=== PATIENT | male | born 1945 | race Caucasian/White ===

== ENCOUNTER 2018-10-30 16:18 | Inpatient (IN) | payer OTHER, MEDICARE ==
[2018-10-30 17:59] LABS: WHITE BLOOD COUNT 1.3 10^3/ul (4.8-10.8)
[2018-10-30 17:59] LABS: ABNORMAL IP MESSAGE 1; HEMATOCRIT 37.2 % (42.0-52.0); HEMOGLOBIN 11.5 g/dl (14.0-18.0); MEAN CORPUSCULAR HEMOGLOBIN 23.8 pg (29.0-33.0); MEAN CORPUSCULAR HGB CONC 30.9 g/dl (32.0-37.0); MEAN CORPUSCULAR VOLUME 76.9 fl (82.0-101.0); MEAN PLATELET VOLUME 11.3 fl (7.4-10.4); PLATELET COUNT 257 10^3/UL (140-415); POSITIVE DIFF @See below; RED BLOOD COUNT 4.84 10^6/ul (4.70-6.10); RED CELL DISTRIBUTION WIDTH 22.6 % (11.5-14.5)
[2018-10-30 18:01] LABS: ADD MAN DIFF? YES
[2018-10-30 18:02] LABS: PATH REVIEW? YES
[2018-10-30 18:18] LABS: INR 0.93; PROTIME 12.6 Sec (11.9-14.9)
[2018-10-30 18:22] LABS: ANION GAP 25 (5-13); BLOOD UREA NITROGEN 26 mg/dl (7-20); CALCIUM 8.8 mg/dl (8.4-10.2); CARBON DIOXIDE 12 mmol/L (21-31); CHLORIDE 91 mmol/L (97-110); CREATININE 0.84 mg/dl (0.61-1.24); POTASSIUM 5.2 mmol/L (3.5-5.1); SODIUM 128 mmol/L (135-144)
[2018-10-30 18:26] LABS: GLUCOSE 583 mg/dl (70-220)
[2018-10-30 18:34] LABS: B-TYPE NATRIURETIC PEPTIDE 783 PG/ML (0-125); TROPONIN-I < 0.012 ng/ml (0.000-0.120)
[2018-10-30] MEDS: DILTIAZEM 25 MG INJ IV (19:01)
[2018-10-30] MEDS: DILTIAZEM-D5W 125MG/125ML DRIP 125 ML IV (19:24)
[2018-10-30] MEDS ORDERED: D10/0.45% NACL + KCL 40 MEQ 1,000 ML IV (19:30)
[2018-10-30] MEDS ORDERED: NS + KCL 40 MEQ 1,000 ML IV (19:30)
[2018-10-30] MEDS ORDERED: DEXTROSE 50% 50 ML SYRINGE IV (19:30)
[2018-10-30] MEDS ORDERED: DEXTROSE 10 %/0.45 % NACL 1,000 ML IV (19:30)
[2018-10-30] MEDS ORDERED: SOD CHLORIDE 0.9% 1,000 ML IV (19:30)
[2018-10-30 19:49] LABS: ANISOCYTOSIS 1+ (0-0); BAND NEUTROPHILS #M 0.2 10^3/ul (0.0-0.6); BAND NEUTROPHILS % (M) 21 % (0-4); BASOPHILS % (M) 1 % (0-2); EOSINOPHILS % (M) 2 % (0-7); ERYTHROBLAST% (NRBC) (M) 1 % (0-0); GIANT THROMBO% (M) 3 % (0-0); LYMPHOCYTES #M 0.5 10^3/ul (0.8-2.9); LYMPHOCYTES % (M) 43 % (15-51); METAMYELOCYTES %M 2 % (0-0); MICROCYTOSIS 1+ (0-0); MONOCYTES % (M) 5 % (0-11); MYELOCYTES % (M) 6 % (0-0); PLATELET MORPHOLOGY COMMENT @See below; REACTIVE LYMPHOCYTES% (M) 1 % (0-0); SEG NEUT #M 0.2 10^3/ul (1.6-7.5); SEGMENTED NEUTROPHILS (M) % 18 % (39-77); SMUDGE%M 36 % (0-0)
[2018-10-30 19:59] LABS: HEMOGLOBIN A1C 11.8 % (0-5.9)
[2018-10-30] MEDS ORDERED: ONDANSETRON 4 MG INJ IV (20:00)
[2018-10-30] MEDS ORDERED: ACETAMINOPHEN 325 MG TAB PO (20:00)
[2018-10-30] MEDS: SOD CHLORIDE 0.9% 1,000 ML IV (20:24)
[2018-10-30] MEDS ORDERED: IPRATROPIUM (NEB) 0.5 MG/2.5 ML AMP NEB (20:30)
[2018-10-30] MEDS ORDERED: morphine SULFATE/PF (2 MG/2 ML) SYG IV (20:30)
[2018-10-30] MEDS ORDERED: ALBUTEROL 0.083% (NEB) 2.5 MG/3 ML AMP NEB (20:30)
[2018-10-30] MEDS ORDERED: ACETAMINOPHEN 650MG/20.3ML CUP PO (20:30)
[2018-10-30 21:05] LABS: ANION GAP 21 (5-13); BLOOD UREA NITROGEN 24 mg/dl (7-20); CALCIUM 8.6 mg/dl (8.4-10.2); CARBON DIOXIDE 13 mmol/L (21-31); CHLORIDE 92 mmol/L (97-110); CREATININE 0.82 mg/dl (0.61-1.24); MAGNESIUM 2.2 mg/dl (1.7-2.5); PHOSPHORUS 2.6 mg/dl (2.5-4.9); SODIUM 126 mmol/L (135-144)
[2018-10-30 21:09] LABS: GLUCOSE 520 mg/dl (70-220)
[2018-10-30 21:41] LABS: LACTIC ACID 1.7 mmol/L (0.5-2.0)
[2018-10-30 22:16] LABS: MODE NASAL CANNULA; MetHgb Venous 1.1 %; Sample Type Blood venous; Site VENOUS LINE; Venous COHb 0.3 %; Venous Fraction OxyHgb 23.8 %; Venous Oxygen Sat 24.1 mmHG (55.0-75.0); Venous Total Hemglobin 11.3 g/dl
[2018-10-30] MEDS: CEFEPIME 2GM/50 ML (PMX) 50 ML IVPB (22:25)
[2018-10-30 22:31] LABS: ALANINE AMINOTRANSFERASE 19 IU/L (13-69); ALBUMIN 3.3 g/dl (3.3-4.9); ALBUMIN/GLOBULIN RATIO 1.43; ALKALINE PHOSPHATASE 195 IU/L (42-121); ANION GAP 19 (5-13); ASPARTATE AMINO TRANSFERASE 16 IU/L (15-46); BILIRUBIN,INDIRECT 0.2 mg/dl (0-1.1); BILIRUBIN,TOTAL 0.2 mg/dl (0.2-1.3); BLOOD UREA NITROGEN 22 mg/dl (7-20); CALCIUM 8.5 mg/dl (8.4-10.2); CARBON DIOXIDE 13 mmol/L (21-31); CHLORIDE 97 mmol/L (97-110); GLUCOSE 398 mg/dl (70-220); POTASSIUM 5.3 mmol/L (3.5-5.1); SODIUM 129 mmol/L (135-144); TOTAL PROTEIN 5.6 g/dl (6.1-8.1)
[2018-10-30 22:32] LABS: MAGNESIUM 2.1 mg/dl (1.7-2.5)
[2018-10-30 22:32] LABS: PHOSPHORUS 2.7 mg/dl (2.5-4.9)
[2018-10-30] MEDS: LACTATED RINGER'S 700 ML IV (22:34)
[2018-10-30] MEDS: ENOXAPARIN 40 MG/0.4 ML SYG SC (22:50)
[2018-10-30] MEDS: NS + KCL 30 MEQ 1,000 ML IV (22:59)
[2018-10-30] MEDS: VANCOMYCIN 1 GM (PMX) 250 ML IVPB (23:10)
[2018-10-31] MEDS: INSULIN REGULAR, HUMAN 100 UNIT in SOD CHLORIDE 0.9% 100 ML IV (00:10)
[2018-10-31 01:23] LABS: CREATINE KINASE 27 IU/L (23-200)
[2018-10-31 01:37] LABS: CK-MB 0.82 ng/ml (0.0-2.4); TROPONIN-I < 0.012 ng/ml (0.000-0.120)
[2018-10-31 01:55] LABS: MODE ROOM AIR; Sample Type Blood venous; Site OTHER; Venous COHb 0.3 %; Venous Fraction OxyHgb 18.2 %; Venous Oxygen Sat 18.6 mmHG (55.0-75.0); Venous Total Hemglobin 9.7 g/dl
[2018-10-31 02:17] LABS: ADD UMIC YES; UR ASCORBIC ACID NEGATIVE (NEGATIVE); UR BILIRUBIN (Dip) NEGATIVE (NEGATIVE); UR BLOOD (Dip) 1+ mg/dL (NEGATIVE); UR CLARITY CLEAR (CLEAR); UR COLOR STRAW (YELLOW); UR GLUCOSE (Dip) 3+ mg/dL (NEGATIVE); UR KETONES (Dip) 2+ mg/dL (NEGATIVE); UR LEUKOCYTE ESTERASE (Dip) NEGATIVE Leu/ul (NEGATIVE); UR NITRITE (Dip) NEGATIVE (NEGATIVE); UR RBC 4 /HPF (0-5); UR SPECIFIC GRAVITY (Dip) 1.022 (1.003-1.030); UR TOTAL PROTEIN (Dip) NEGATIVE (NEGATIVE); UR UROBILINOGEN (Dip) NEGATIVE (NEGATIVE); UR WBC 2 /HPF (0-5)
[2018-10-31 02:20] LABS: ANION GAP 18 (5-13); BLOOD UREA NITROGEN 19 mg/dl (7-20); CARBON DIOXIDE 12 mmol/L (21-31); CHLORIDE 103 mmol/L (97-110); CREATININE 0.72 mg/dl (0.61-1.24); GLUCOSE 324 mg/dl (70-220); MAGNESIUM 1.9 mg/dl (1.7-2.5); PHOSPHORUS 2.2 mg/dl (2.5-4.9); SODIUM 133 mmol/L (135-144)
[2018-10-31] MEDS ORDERED: NORepinephrine 8MG/250 ML (PMX 250 ML (02:30)
[2018-10-31] MEDS ORDERED: DEXAMETHASONE 4 MG TAB PO (03:00)
[2018-10-31] MEDS: D10/0.45% NACL + KCL 30 MEQ 1,000 ML IV ×2 (03:07→09:04)
[2018-10-31 03:52] LABS: MODE ROOM AIR; MetHgb Venous 1.6 %; Sample Type Blood venous; Site VENOUS LINE; Venous COHb 0 %; Venous Fraction OxyHgb 21.4 %; Venous Oxygen Sat 21.7 mmHG (55.0-75.0)
[2018-10-31 04:06] LABS: ABNORMAL IP MESSAGE 1; HEMOGLOBIN 9.4 g/dl (14.0-18.0); MEAN CORPUSCULAR HEMOGLOBIN 24.4 pg (29.0-33.0); MEAN CORPUSCULAR HGB CONC 32.4 g/dl (32.0-37.0); MEAN CORPUSCULAR VOLUME 75.1 fl (82.0-101.0); PLATELET COUNT 231 10^3/UL (140-415); POSITIVE DIFF @See below; RED BLOOD COUNT 3.86 10^6/ul (4.70-6.10); RED CELL DISTRIBUTION WIDTH 22.3 % (11.5-14.5)
[2018-10-31 04:06] LABS: WHITE BLOOD COUNT 0.8 10^3/ul (4.8-10.8)
[2018-10-31] MEDS: NS + KCL 30 MEQ 1,000 ML IV (04:07)
[2018-10-31 04:10] LABS: ADD MAN DIFF? YES; ANION GAP 14 (5-13); BLOOD UREA NITROGEN 18 mg/dl (7-20); CALCIUM 7.9 mg/dl (8.4-10.2); CARBON DIOXIDE 19 mmol/L (21-31); CHLORIDE 103 mmol/L (97-110); CREATININE 0.72 mg/dl (0.61-1.24); GLUCOSE 177 mg/dl (70-220); IRON 39 ug/dl (35-150); MAGNESIUM 1.8 mg/dl (1.7-2.5); POTASSIUM 4.8 mmol/L (3.5-5.1); SODIUM 136 mmol/L (135-144)
[2018-10-31 04:11] LABS: CREATINE KINASE 25 IU/L (23-200)
[2018-10-31 04:18] LABS: % IRON SATURATION 18 % SAT (22-52)
[2018-10-31 04:22] LABS: CK INDEX 3.1; CK-MB 0.78 ng/ml (0.0-2.4); TROPONIN-I < 0.012 ng/ml (0.000-0.120)
[2018-10-31 04:24] LABS: TOTAL IRON BINDING CAPACITY 215 ug/dl (241-421)
[2018-10-31] MEDS: PANTOPRAZOLE 40 MG INJ IV (05:12)
[2018-10-31 06:04] LABS: ANISOCYTOSIS 2+ (0-0); BAND NEUTROPHILS #M 0.1 10^3/ul (0.0-0.6); BAND NEUTROPHILS % (M) 16 % (0-4); BASOPHILS % (M) 1 % (0-2); EOSINOPHILS % (M) 1 % (0-7); GIANT THROMBO% (M) 30 % (0-0); LYMPHOCYTES #M 0.5 10^3/ul (0.8-2.9); LYMPHOCYTES % (M) 67 % (15-51); MICROCYTOSIS 2+ (0-0); MONOCYTES % (M) 1 % (0-11); MYELOCYTES % (M) 3 % (0-0); PLATELET ESTIMATE NORMAL; POLYCHROMASIA 3+ (0-0); REACTIVE LYMPHOCYTES% (M) 2 % (0-0); SEG NEUT #M 0.1 10^3/ul (1.6-7.5); SEGMENTED NEUTROPHILS (M) % 9 % (39-77); SMUDGE%M 7 % (0-0)
[2018-10-31] MEDS: NORepinephrine 8MG/250 ML (PMX 250 ML IV (06:54)
[2018-10-31 08:17] LABS: MODE ROOM AIR; MetHgb Venous 0.7 %; Sample Type Blood venous; Site VENOUS LINE; Venous COHb 0.7 %; Venous Fraction OxyHgb 56.5 %; Venous Oxygen Sat 57.3 mmHG (55.0-75.0); Venous Total Hemglobin 9.7 g/dl
[2018-10-31] MEDS ORDERED: ENOXAPARIN 60 MG/0.6 ML SYG SC (09:00)
[2018-10-31 09:04] LABS: ANION GAP 8 (5-13); BLOOD UREA NITROGEN 17 mg/dl (7-20); CALCIUM 7.4 mg/dl (8.4-10.2); CARBON DIOXIDE 17 mmol/L (21-31); CHLORIDE 107 mmol/L (97-110); GLUCOSE 174 mg/dl (70-220); MAGNESIUM 1.8 mg/dl (1.7-2.5); POTASSIUM 4.5 mmol/L (3.5-5.1); SODIUM 132 mmol/L (135-144)
[2018-10-31] MEDS ORDERED: GLUCOSE GEL 15 GRAM TUBE PO ×2 (10:00)
[2018-10-31] MEDS ORDERED: GLUCAGON 1 MG INJ IM (10:00)
[2018-10-31] MEDS ORDERED: GLUCOSE GEL 15 GRAM TUBE BUCCAL (10:00)
[2018-10-31] MEDS ORDERED: DEXTROSE 50% 50 ML SYRINGE IV ×2 (10:00)
[2018-10-31] MEDS: INSULIN GLARGINE [LANTus] (100 UNITS/ML) SYG SC (10:48)
[2018-10-31] MEDS: ENOXAPARIN 40 MG/0.4 ML SYG SC (10:49)
[2018-10-31 11:53] LABS: ADD UMIC NO; UR ASCORBIC ACID NEGATIVE (NEGATIVE); UR BACTERIA FEW /HPF (NONE SEEN); UR BILIRUBIN (Dip) NEGATIVE (NEGATIVE); UR BLOOD (Dip) NEGATIVE (NEGATIVE); UR CLARITY SLIGHTLY CLOUDY (CLEAR); UR COLOR YELLOW (YELLOW); UR GLUCOSE (Dip) 3+ mg/dL (NEGATIVE); UR KETONES (Dip) 1+ mg/dL (NEGATIVE); UR LEUKOCYTE ESTERASE (Dip) NEGATIVE Leu/ul (NEGATIVE); UR NITRITE (Dip) NEGATIVE (NEGATIVE); UR RBC 2 /HPF (0-5); UR SPECIFIC GRAVITY (Dip) 1.017 (1.003-1.030); UR TOTAL PROTEIN (Dip) NEGATIVE (NEGATIVE); UR UROBILINOGEN (Dip) NEGATIVE (NEGATIVE); UR WBC 1 /HPF (0-5)
[2018-10-31 12:04] LABS: MODE ROOM AIR; MetHgb Venous 0.2 %; Sample Type Blood venous; Site VENOUS LINE; Venous COHb 0.3 %; Venous Fraction OxyHgb 73.6 %
[2018-10-31] MEDS: INSULIN ASPART [NOVOLOG] 3 ML PEN SC ×5 (12:25→20:53)
[2018-10-31 12:35] LABS: ANION GAP 11 (5-13); BLOOD UREA NITROGEN 13 mg/dl (7-20); CALCIUM 7.7 mg/dl (8.4-10.2); CARBON DIOXIDE 17 mmol/L (21-31); CHLORIDE 105 mmol/L (97-110); CREATININE 0.66 mg/dl (0.61-1.24); GLUCOSE 170 mg/dl (70-220); MAGNESIUM 1.7 mg/dl (1.7-2.5); PHOSPHORUS 0.7 mg/dl (2.5-4.9); POTASSIUM 4.4 mmol/L (3.5-5.1); SODIUM 133 mmol/L (135-144)
[2018-10-31 13:16] LABS: AADO2 Arterial 9.1 mmHg (7.0-24.0); Allen Test ACCEPTAB; Arterial Base Excess -7.7 mmol/L (-3.0-3); Arterial Blood Gas Oxygen Sat 97.9 mmHG (95.0-100.0); Arterial COHb 0.2 % (0.0-3.0); Arterial Fraction of Oxyhgb 97.6 % (93.0-99.0); Arterial HCO3 15.5 mmol/L (22.0-26.0); Arterial MetHb 0.1 % (0.0-1.5); Arterial pCO2 24.7 mmhg (35-45); MODE ROOM AIR; Site Right Radial
[2018-10-31] MEDS ORDERED: NPH, HUMAN INSULIN ISOPHANE 3ML VIAL SC (18:00)
[2018-10-31 20:01] LABS: ANION GAP 7 (5-13); BLOOD UREA NITROGEN 12 mg/dl (7-20); CALCIUM 7.8 mg/dl (8.4-10.2); CARBON DIOXIDE 21 mmol/L (21-31); CHLORIDE 102 mmol/L (97-110); CREATININE 0.65 mg/dl (0.61-1.24); GLUCOSE 237 mg/dl (70-220); MAGNESIUM 1.7 mg/dl (1.7-2.5); PHOSPHORUS 0.6 mg/dl (2.5-4.9); POTASSIUM 4.3 mmol/L (3.5-5.1); SODIUM 130 mmol/L (135-144)
[2018-10-31] MEDS: SOD CHLORIDE 0.9% 500 ML IV ×2 (23:10→23:49)
[2018-10-31] MEDS: METOPROLOL 5 MG INJ IV (23:23)
[2018-11-01] MEDS: ACCUCHECK 2 AM XX (02:08)
[2018-11-01] MEDS: PANTOPRAZOLE (EC) 40 MG TAB PO (05:23)
[2018-11-01 05:29] LABS: ABNORMAL IP MESSAGE 1; HEMATOCRIT 27.5 % (42.0-52.0); HEMOGLOBIN 8.9 g/dl (14.0-18.0); MEAN CORPUSCULAR HEMOGLOBIN 23.9 pg (29.0-33.0); MEAN CORPUSCULAR HGB CONC 32.4 g/dl (32.0-37.0); MEAN CORPUSCULAR VOLUME 73.9 fl (82.0-101.0); MEAN PLATELET VOLUME 11.1 fl (7.4-10.4); PLATELET COUNT 224 10^3/UL (140-415); POSITIVE DIFF @See below; RED BLOOD COUNT 3.72 10^6/ul (4.70-6.10); RED CELL DISTRIBUTION WIDTH 22.3 % (11.5-14.5)
[2018-11-01 05:29] LABS: WHITE BLOOD COUNT 1.1 10^3/ul (4.8-10.8)
[2018-11-01 05:31] LABS: ADD MAN DIFF? YES
[2018-11-01 06:04] LABS: ANION GAP 7 (5-13); BLOOD UREA NITROGEN 9 mg/dl (7-20); CALCIUM 7.8 mg/dl (8.4-10.2); CARBON DIOXIDE 20 mmol/L (21-31); CHLORIDE 107 mmol/L (97-110); CREATININE 0.63 mg/dl (0.61-1.24); GLUCOSE 193 mg/dl (70-220); POTASSIUM 3.9 mmol/L (3.5-5.1); SODIUM 134 mmol/L (135-144)
[2018-11-01] MEDS: metFORMIN 500 MG TAB PO ×2 (07:49→17:50)
[2018-11-01] MEDS: INSULIN GLARGINE [LANTus] (100 UNITS/ML) SYG SC (07:50)
[2018-11-01] MEDS: INSULIN ASPART [NOVOLOG] 3 ML PEN SC ×7 (07:51→21:00)
[2018-11-01 09:10] LABS: ANISOCYTOSIS 1+ (0-0); BAND NEUTROPHILS #M 0.1 10^3/ul (0.0-0.6); BAND NEUTROPHILS % (M) 17 % (0-4); EOSINOPHILS % (M) 6 % (0-7); GIANT THROMBO% (M) 3 % (0-0); HYPOCHROMASIA 1+ (0-0); LYMPHOCYTES #M 0.6 10^3/ul (0.8-2.9); LYMPHOCYTES % (M) 55 % (15-51); METAMYELOCYTES %M 2 % (0-0); MICROCYTOSIS 1+ (0-0); MONOCYTES % (M) 9 % (0-11); MYELOCYTES % (M) 1 % (0-0); PLATELET ESTIMATE NORMAL; POLYCHROMASIA 1+ (0-0); PROMYELOCYTES % (M) 1 % (0-0); REACTIVE LYMPHOCYTES% (M) 3 % (0-0); SEG NEUT #M 0.1 10^3/ul (1.6-7.5); SEGMENTED NEUTROPHILS (M) % 6 % (39-77); SMUDGE%M 17 % (0-0)
[2018-11-01] MEDS: LINAGLIPTIN 5 MG TABLET PO (09:30)
[2018-11-01] MEDS: ENOXAPARIN 40 MG/0.4 ML SYG SC (09:32)
[2018-11-01] MEDS: DIGOXIN 0.125 MG TAB PO (13:16)
[2018-11-01] MEDS: CEFEPIME 2GM/50 ML (PMX) 50 ML IVPB ×2 (14:37→21:21)
[2018-11-01] MEDS: ONDANSETRON 4 MG INJ IV (17:28)
[2018-11-01] MEDS: FILGRASTIM 300 MCG INJ SC (17:36)
[2018-11-01] MEDS: NORepinephrine 8MG/250 ML (PMX 250 ML IV (17:38)
[2018-11-01] MEDS: DEXTROSE 50% 50 ML SYRINGE IV (21:27)
[2018-11-02] MEDS: ACCUCHECK 2 AM XX (02:34)
[2018-11-02 04:42] LABS: ABNORMAL IP MESSAGE 1; HEMATOCRIT 27.8 % (42.0-52.0); MEAN CORPUSCULAR HEMOGLOBIN 24.1 pg (29.0-33.0); MEAN CORPUSCULAR HGB CONC 32.4 g/dl (32.0-37.0); MEAN CORPUSCULAR VOLUME 74.3 fl (82.0-101.0); MEAN PLATELET VOLUME 11.1 fl (7.4-10.4); PLATELET COUNT 223 10^3/UL (140-415); POSITIVE DIFF @See below; RED BLOOD COUNT 3.74 10^6/ul (4.70-6.10)
[2018-11-02 04:42] LABS: WHITE BLOOD COUNT 1.8 10^3/ul (4.8-10.8)
[2018-11-02 04:56] LABS: ADD MAN DIFF? YES
[2018-11-02 05:03] LABS: ANION GAP 9 (5-13)
[2018-11-02 05:05] LABS: ALANINE AMINOTRANSFERASE 17 IU/L (13-69); ALBUMIN 2.4 g/dl (3.3-4.9); ALKALINE PHOSPHATASE 95 IU/L (42-121); ASPARTATE AMINO TRANSFERASE 14 IU/L (15-46); BILIRUBIN,INDIRECT 0.1 mg/dl (0-1.1); BILIRUBIN,TOTAL 0.1 mg/dl (0.2-1.3); BLOOD UREA NITROGEN 8 mg/dl (7-20); CALCIUM 8.5 mg/dl (8.4-10.2); CARBON DIOXIDE 22 mmol/L (21-31); CHLORIDE 103 mmol/L (97-110); CREATININE 0.73 mg/dl (0.61-1.24); GLUCOSE 66 mg/dl (70-220); POTASSIUM 3.5 mmol/L (3.5-5.1); SODIUM 134 mmol/L (135-144); TOTAL PROTEIN 4.4 g/dl (6.1-8.1)
[2018-11-02] MEDS: PANTOPRAZOLE (EC) 40 MG TAB PO (06:27)
[2018-11-02] MEDS: metFORMIN 500 MG TAB PO (07:35)
[2018-11-02] MEDS: INSULIN ASPART [NOVOLOG] 3 ML PEN SC ×5 (07:35→21:00)
[2018-11-02] MEDS: INSULIN GLARGINE [LANTus] (100 UNITS/ML) SYG SC ×2 (08:00→21:00)
[2018-11-02 08:27] LABS: ANISOCYTOSIS 2+ (0-0); ERYTHROBLAST% (NRBC) (M) 1 % (0-0); HYPOCHROMASIA 1+ (0-0); METAMYELOCYTES %M 1 % (0-0); MICROCYTOSIS 2+ (0-0); OVALOCYTES 1+ (0-0); PLATELET ESTIMATE NORMAL; POLYCHROMASIA 2+ (0-0)
[2018-11-02] MEDS: CEFEPIME 2GM/50 ML (PMX) 50 ML IVPB ×2 (08:31→21:43)
[2018-11-02] MEDS: ENOXAPARIN 40 MG/0.4 ML SYG SC (08:34)
[2018-11-02] MEDS: LINAGLIPTIN 5 MG TABLET PO (09:00)
[2018-11-02 10:28] LABS: BAND NEUTROPHILS % (M) 3 % (0-4); BASOPHILS % (M) 1 % (0-2); EOSINOPHILS % (M) 6 % (0-7); GIANT THROMBO% (M) 6 % (0-0); LYMPHOCYTES #M 0.9 10^3/ul (0.8-2.9); LYMPHOCYTES % (M) 55 % (15-51); MONOCYTE #M 0.5 10^3/ul (0.3-0.9); MONOCYTES % (M) 28 % (0-11); REACTIVE LYMPHOCYTES% (M) 5 % (0-0); SEGMENTED NEUTROPHILS (M) % 1 % (39-77); SMUDGE%M 34 % (0-0)
[2018-11-02] MEDS: DIGOXIN 0.125 MG TAB PO (12:34)
[2018-11-02] MEDS: SOD CHLORIDE 0.9% 1,000 ML IV (12:52)
[2018-11-02] MEDS: FILGRASTIM 300 MCG INJ SC (17:04)
[2018-11-03] MEDS: ACCUCHECK 2 AM XX (02:00)
[2018-11-03 05:29] LABS: ADD MAN DIFF? NO
[2018-11-03 05:34] LABS: WHITE BLOOD COUNT 4.2 10^3/ul (4.8-10.8)
[2018-11-03 05:34] LABS: ABNORMAL IP MESSAGE 1; BASOPHILS % 0.5 % (0.0-2.0); EOSINOPHILS # 0.1 10^3/ul (0.0-0.5); EOSINOPHILS % 1.4 % (0.0-7.0); HEMATOCRIT 24.3 % (42.0-52.0); HEMOGLOBIN 7.8 g/dl (14.0-18.0); LYMPHOCYTES % 23.6 % (15.0-51.0); MEAN CORPUSCULAR HEMOGLOBIN 23.9 pg (29.0-33.0); MEAN CORPUSCULAR HGB CONC 32.1 g/dl (32.0-37.0); MEAN CORPUSCULAR VOLUME 74.3 fl (82.0-101.0); MEAN PLATELET VOLUME 10.9 fl (7.4-10.4); MONOCYTE # 1.2 10^3/ul (0.3-0.9); MONOCYTES % 29.9 % (0.0-11.0); NEUTROPHIL # 1.8 10^3/ul (1.6-7.5); NEUTROPHILS % 44.4 % (39.0-77.0); NUCLEATED RED BLOOD CELLS% 0.7 /100WBC (0.0-0.0); PLATELET COUNT 189 10^3/UL (140-415); POSITIVE DIFF @See below; RED BLOOD COUNT 3.27 10^6/ul (4.70-6.10); RED CELL DISTRIBUTION WIDTH 23.5 % (11.5-14.5)
[2018-11-03] MEDS: PANTOPRAZOLE (EC) 40 MG TAB PO (06:37)
[2018-11-03] MEDS: INSULIN ASPART [NOVOLOG] 3 ML PEN SC ×4 (07:35→21:08)
[2018-11-03] MEDS: metFORMIN 500 MG TAB PO (07:56)
[2018-11-03 07:59] LABS: OCCULT BLOOD STOOL NEGATIVE (NEGATIVE)
[2018-11-03] MEDS: CEFEPIME 2GM/50 ML (PMX) 50 ML IVPB ×2 (08:30→21:04)
[2018-11-03] MEDS: ENOXAPARIN 40 MG/0.4 ML SYG SC (08:34)
[2018-11-03 10:27] LABS: ABNORMAL IP MESSAGE 1; HEMATOCRIT 27.6 % (42.0-52.0); HEMOGLOBIN 8.9 g/dl (14.0-18.0); MEAN CORPUSCULAR HEMOGLOBIN 24.3 pg (29.0-33.0); MEAN CORPUSCULAR HGB CONC 32.2 g/dl (32.0-37.0); MEAN CORPUSCULAR VOLUME 75.2 fl (82.0-101.0); MEAN PLATELET VOLUME 10.5 fl (7.4-10.4); NUCLEATED RED BLOOD CELLS% 0.8 /100WBC (0.0-0.0); PLATELET COUNT 205 10^3/UL (140-415); POSITIVE DIFF @See below; RED BLOOD COUNT 3.67 10^6/ul (4.70-6.10); RED CELL DISTRIBUTION WIDTH 23.9 % (11.5-14.5)
[2018-11-03 10:27] LABS: WHITE BLOOD COUNT 7.8 10^3/ul (4.8-10.8)
[2018-11-03 10:33] LABS: ADD MAN DIFF? YES
[2018-11-03 10:47] LABS: ALANINE AMINOTRANSFERASE 15 IU/L (13-69); ALBUMIN 2.3 g/dl (3.3-4.9); ALBUMIN/GLOBULIN RATIO 0.95; ALKALINE PHOSPHATASE 103 IU/L (42-121); ANION GAP 7 (5-13); ASPARTATE AMINO TRANSFERASE 13 IU/L (15-46); BLOOD UREA NITROGEN 13 mg/dl (7-20); CARBON DIOXIDE 21 mmol/L (21-31); CHLORIDE 105 mmol/L (97-110); CREATININE 0.82 mg/dl (0.61-1.24); GLUCOSE 186 mg/dl (70-220); POTASSIUM 3.2 mmol/L (3.5-5.1); SODIUM 133 mmol/L (135-144); TOTAL PROTEIN 4.7 g/dl (6.1-8.1)
[2018-11-03] MEDS: SOD CHLORIDE 0.9% 1,000 ML IV (11:10)
[2018-11-03] MEDS: MIDODRINE 5 MG TAB PO ×3 (11:10→16:50)
[2018-11-03] MEDS: DIGOXIN 0.125 MG TAB PO (12:43)
[2018-11-03] MEDS: POTASSIUM CHLORIDE (SR) 20 MEQ TAB PO (12:44)
[2018-11-03 12:46] LABS: ANISOCYTOSIS 3+ (0-0); BAND NEUTROPHILS #M 4.2 10^3/ul (0.0-0.6); BAND NEUTROPHILS % (M) 54 % (0-4); EOSINOPHILS % (M) 1 % (0-7); ERYTHROBLAST% (NRBC) (M) 2 % (0-0); HYPOCHROMASIA 1+ (0-0); LYMPHOCYTES #M 0.7 10^3/ul (0.8-2.9); LYMPHOCYTES % (M) 10 % (15-51); METAMYELOCYTES #M 0.1 10^3/ul (0.0-0.0); METAMYELOCYTES %M 2 % (0-0); MICROCYTOSIS 3+ (0-0); MONOCYTE #M 1.3 10^3/ul (0.3-0.9); MONOCYTES % (M) 17 % (0-11); MYELOCYTES % (M) 1 % (0-0); PLATELET ESTIMATE NORMAL; POLYCHROMASIA 3+ (0-0); REACTIVE LYMPHOCYTES #M 0.4 10^3/ul (0.0-0.0); REACTIVE LYMPHOCYTES% (M) 6 % (0-0); SEGMENTED NEUTROPHILS (M) % 9 % (39-77); SMUDGE%M 6 % (0-0)
[2018-11-03] MEDS: CLOTRIMAZOLE 1% 30 GM CR TOP ×2 (13:17→21:05)
[2018-11-03] MEDS: COSYNTROPIN 0.25 MG INJ IV (16:51)
[2018-11-03] MEDS: FILGRASTIM 300 MCG INJ SC (16:52)
[2018-11-04] MEDS: SOD CHLORIDE 0.9% 1,000 ML IV ×3 (02:01→14:36)
[2018-11-04] MEDS: ACCUCHECK 2 AM XX (02:01)
[2018-11-04] MEDS: PANTOPRAZOLE (EC) 40 MG TAB PO (05:19)
[2018-11-04] MEDS: INSULIN ASPART [NOVOLOG] 3 ML PEN SC ×4 (08:17→20:55)
[2018-11-04 08:25] LABS: WHITE BLOOD COUNT 29.4 10^3/ul (4.8-10.8)
[2018-11-04 08:25] LABS: ABNORMAL IP MESSAGE 1; HEMATOCRIT 27.4 % (42.0-52.0); HEMOGLOBIN 8.8 g/dl (14.0-18.0); MEAN CORPUSCULAR HGB CONC 32.1 g/dl (32.0-37.0); MEAN CORPUSCULAR VOLUME 74.9 fl (82.0-101.0); MEAN PLATELET VOLUME 9.8 fl (7.4-10.4); NUCLEATED RED BLOOD CELLS% 0.2 /100WBC (0.0-0.0); PLATELET COUNT 216 10^3/UL (140-415); POSITIVE DIFF @See below; RED BLOOD COUNT 3.66 10^6/ul (4.70-6.10); RED CELL DISTRIBUTION WIDTH 24.4 % (11.5-14.5)
[2018-11-04 08:34] LABS: ADD MAN DIFF? YES
[2018-11-04 08:51] LABS: ANION GAP 12 (5-13); BLOOD UREA NITROGEN 14 mg/dl (7-20); CALCIUM 7.8 mg/dl (8.4-10.2); CARBON DIOXIDE 19 mmol/L (21-31); CHLORIDE 105 mmol/L (97-110); CREATININE 0.85 mg/dl (0.61-1.24); GLUCOSE 198 mg/dl (70-220); POTASSIUM 3.7 mmol/L (3.5-5.1); SODIUM 136 mmol/L (135-144)
[2018-11-04] MEDS: CEFEPIME 2GM/50 ML (PMX) 50 ML IVPB ×2 (09:04→20:53)
[2018-11-04] MEDS: MIDODRINE 5 MG TAB PO ×3 (09:04→16:42)
[2018-11-04] MEDS: ENOXAPARIN 40 MG/0.4 ML SYG SC (09:06)
[2018-11-04] MEDS: CLOTRIMAZOLE 1% 30 GM CR TOP ×2 (09:08→20:53)
[2018-11-04 09:28] LABS: ANISOCYTOSIS 2+ (0-0); BAND NEUTROPHILS #M 8.8 10^3/ul (0.0-0.6); BAND NEUTROPHILS % (M) 30 % (0-4); BURR CELLS 1+ (0-0); ERYTHROBLAST% (NRBC) (M) 1 % (0-0); GIANT THROMBO% (M) 1 % (0-0); LYMPHOCYTES #M 1.7 10^3/ul (0.8-2.9); LYMPHOCYTES % (M) 6 % (15-51); MICROCYTOSIS 2+ (0-0); MONOCYTE #M 3.5 10^3/ul (0.3-0.9); MONOCYTES % (M) 12 % (0-11); MYELOCYTES #M 0.2 10^3/ul (0.0-0.0); MYELOCYTES % (M) 1 % (0-0); PLATELET ESTIMATE NORMAL; POIKILOCYTOSIS 1+ (0-0); POLYCHROMASIA 3+ (0-0); PROMYELOCYTES #M 0.2 10^3/ul (0-0); PROMYELOCYTES % (M) 1 % (0-0); SEG NEUT #M 17.3 10^3/ul (1.6-7.5); SEGMENTED NEUTROPHILS (M) % 50 % (39-77); SMUDGE%M 4 % (0-0)
[2018-11-04] MEDS: INSULIN GLARGINE [LANTus] (100 UNITS/ML) SYG SC (09:59)
[2018-11-04] MEDS: DIGOXIN 0.125 MG TAB PO (12:47)
[2018-11-05] MEDS: ACCUCHECK 2 AM XX (02:00)
[2018-11-05] MEDS: SOD CHLORIDE 0.9% 250 ML IV (04:12)
[2018-11-05 05:00] LABS: WHITE BLOOD COUNT 20.6 10^3/ul (4.8-10.8)
[2018-11-05 05:00] LABS: ABNORMAL IP MESSAGE 1; HEMATOCRIT 25.6 % (42.0-52.0); HEMOGLOBIN 8.1 g/dl (14.0-18.0); MEAN CORPUSCULAR HEMOGLOBIN 23.8 pg (29.0-33.0); MEAN CORPUSCULAR HGB CONC 31.6 g/dl (32.0-37.0); MEAN CORPUSCULAR VOLUME 75.1 fl (82.0-101.0); MEAN PLATELET VOLUME 9.7 fl (7.4-10.4); NUCLEATED RED BLOOD CELLS% 0.3 /100WBC (0.0-0.0); PLATELET COUNT 219 10^3/UL (140-415); POSITIVE DIFF @See below; RED BLOOD COUNT 3.41 10^6/ul (4.70-6.10); RED CELL DISTRIBUTION WIDTH 24.8 % (11.5-14.5)
[2018-11-05] MEDS: PANTOPRAZOLE (EC) 40 MG TAB PO (05:28)
[2018-11-05 05:35] LABS: ANION GAP 9 (5-13); BLOOD UREA NITROGEN 14 mg/dl (7-20); CALCIUM 7.8 mg/dl (8.4-10.2); CARBON DIOXIDE 23 mmol/L (21-31); CHLORIDE 106 mmol/L (97-110); CREATININE 0.81 mg/dl (0.61-1.24); GLUCOSE 106 mg/dl (70-220); MAGNESIUM 1.6 mg/dl (1.7-2.5); PHOSPHORUS 1.2 mg/dl (2.5-4.9); SODIUM 138 mmol/L (135-144)
[2018-11-05 05:47] LABS: ADD MAN DIFF? YES
[2018-11-05] MEDS: INSULIN ASPART [NOVOLOG] 3 ML PEN SC ×4 (07:35→20:49)
[2018-11-05 07:56] LABS: ANISOCYTOSIS 2+ (0-0); BAND NEUTROPHILS #M 2.8 10^3/ul (0.0-0.6); BAND NEUTROPHILS % (M) 14 % (0-4); EOSINOPHILS % (M) 1 % (0-7); ERYTHROBLAST% (NRBC) (M) 1 % (0-0); HYPOCHROMASIA 2+ (0-0); LYMPHOCYTES % (M) 10 % (15-51); MICROCYTOSIS 2+ (0-0); MONOCYTES % (M) 5 % (0-11); OVALOCYTES 2+ (0-0); PLATELET ESTIMATE NORMAL; POLYCHROMASIA 3+ (0-0); SEGMENTED NEUTROPHILS (M) % 70 % (39-77); SMUDGE%M 8 % (0-0)
[2018-11-05] MEDS: MIDODRINE 5 MG TAB PO ×3 (08:04→17:28)
[2018-11-05] MEDS: LINAGLIPTIN 5 MG TABLET PO (08:05)
[2018-11-05] MEDS: INSULIN GLARGINE [LANTus] (100 UNITS/ML) SYG SC (08:06)
[2018-11-05] MEDS: ENOXAPARIN 40 MG/0.4 ML SYG SC (08:08)
[2018-11-05] MEDS: CLOTRIMAZOLE 1% 30 GM CR TOP ×2 (08:09→20:50)
[2018-11-05] MEDS: CEFEPIME 2GM/50 ML (PMX) 50 ML IVPB ×2 (08:44→21:09)
[2018-11-05] MEDS: MAGNESIUM SULFATE 2 GM/50 ML 50 ML IVPB (09:29)
[2018-11-05] MEDS: POTASSIUM PHOSPHATE 15 MM in SOD CHLORIDE 0.9% 250 ML IVPB (12:09)
[2018-11-05] MEDS: DIGOXIN 0.125 MG TAB PO (12:19)
[2018-11-05] MEDS ORDERED: MAGNESIUM SULFATE 4 GM/100 ML 100 ML IVPB (14:30)
[2018-11-06] MEDS: ACCUCHECK 2 AM XX (02:00)
[2018-11-06] MEDS: PANTOPRAZOLE (EC) 40 MG TAB PO (06:20)
[2018-11-06 06:40] LABS: ABNORMAL IP MESSAGE 1; HEMATOCRIT 27.6 % (42.0-52.0); HEMOGLOBIN 8.8 g/dl (14.0-18.0); MEAN CORPUSCULAR HEMOGLOBIN 24.1 pg (29.0-33.0); MEAN CORPUSCULAR HGB CONC 31.9 g/dl (32.0-37.0); MEAN CORPUSCULAR VOLUME 75.6 fl (82.0-101.0); MEAN PLATELET VOLUME 9.7 fl (7.4-10.4); NUCLEATED RED BLOOD CELLS% 0.5 /100WBC (0.0-0.0); PLATELET COUNT 247 10^3/UL (140-415); POSITIVE DIFF @See below; RED BLOOD COUNT 3.65 10^6/ul (4.70-6.10); RED CELL DISTRIBUTION WIDTH 25.2 % (11.5-14.5)
[2018-11-06 06:41] LABS: ADD MAN DIFF? YES
[2018-11-06 07:09] LABS: MAGNESIUM 2.1 mg/dl (1.7-2.5)
[2018-11-06 07:10] LABS: ANION GAP 7 (5-13); BLOOD UREA NITROGEN 14 mg/dl (7-20); CALCIUM 8.1 mg/dl (8.4-10.2); CARBON DIOXIDE 22 mmol/L (21-31); CHLORIDE 109 mmol/L (97-110); CREATININE 0.87 mg/dl (0.61-1.24); GLUCOSE 56 mg/dl (70-220); SODIUM 138 mmol/L (135-144)
[2018-11-06 07:15] LABS: POTASSIUM 2.8 mmol/L (3.5-5.1)
[2018-11-06] MEDS: INSULIN ASPART [NOVOLOG] 3 ML PEN SC ×4 (07:55→20:23)
[2018-11-06] MEDS: CEFEPIME 2GM/50 ML (PMX) 50 ML IVPB ×2 (08:17→20:25)
[2018-11-06] MEDS: MIDODRINE 5 MG TAB PO ×3 (08:17→16:55)
[2018-11-06] MEDS: LINAGLIPTIN 5 MG TABLET PO (08:17)
[2018-11-06] MEDS: INSULIN GLARGINE [LANTus] (100 UNITS/ML) SYG SC ×2 (08:20→09:41)
[2018-11-06] MEDS: ENOXAPARIN 40 MG/0.4 ML SYG SC (08:23)
[2018-11-06] MEDS: POTASSIUM CHLORIDE (SR) 20 MEQ TAB PO ×2 (08:38→14:23)
[2018-11-06] MEDS: MAGNESIUM SULFATE 2 GM/50 ML 50 ML IVPB (08:41)
[2018-11-06] MEDS: CLOTRIMAZOLE 1% 30 GM CR TOP ×2 (08:42→20:25)
[2018-11-06 08:49] LABS: ANISOCYTOSIS 2+ (0-0); BAND NEUTROPHILS #M 0.7 10^3/ul (0.0-0.6); BAND NEUTROPHILS % (M) 5 % (0-4); BASOPHIL #M 0.1 10^3/ul (0.0-0.0); BASOPHILS % (M) 1 % (0-2); BURR CELLS 1+ (0-0); EOSINOPHILS % (M) 2 % (0-7); ERYTHROBLAST% (NRBC) (M) 1 % (0-0); GIANT THROMBO% (M) 5 % (0-0); LYMPHOCYTES % (M) 7 % (15-51); METAMYELOCYTES #M 0.1 10^3/ul (0.0-0.0); METAMYELOCYTES %M 1 % (0-0); MICROCYTOSIS 2+ (0-0); MONOCYTE #M 1.8 10^3/ul (0.3-0.9); MONOCYTES % (M) 12 % (0-11); MYELOCYTES #M 0.1 10^3/ul (0.0-0.0); MYELOCYTES % (M) 1 % (0-0); OVALOCYTES 1+ (0-0); PLATELET ESTIMATE NORMAL; POLYCHROMASIA 3+ (0-0); REACTIVE LYMPHOCYTES #M 0.1 10^3/ul (0.0-0.0); REACTIVE LYMPHOCYTES% (M) 1 % (0-0); SEG NEUT #M 10.6 10^3/ul (1.6-7.5); SEGMENTED NEUTROPHILS (M) % 70 % (39-77); SMUDGE%M 7 % (0-0); STOMATOCYTES 1+ (0-0); TARGET CELLS 1+ (0-0)
[2018-11-06] MEDS: POTASSIUM CHLORIDE 100 ML IVPB (09:46)
[2018-11-06] MEDS: SOD CHLORIDE 0.9% 1,000 ML IV (11:36)
[2018-11-06] MEDS: DIGOXIN 0.125 MG TAB PO (12:18)
[2018-11-07] MEDS: ACCUCHECK 2 AM XX (01:33)
[2018-11-07] MEDS: PANTOPRAZOLE (EC) 40 MG TAB PO (06:05)
[2018-11-07 06:34] LABS: ABNORMAL IP MESSAGE 1; HEMATOCRIT 25.4 % (42.0-52.0); HEMOGLOBIN 8.1 g/dl (14.0-18.0); MEAN CORPUSCULAR HEMOGLOBIN 24.4 pg (29.0-33.0); MEAN CORPUSCULAR HGB CONC 31.9 g/dl (32.0-37.0); MEAN CORPUSCULAR VOLUME 76.5 fl (82.0-101.0); MEAN PLATELET VOLUME 9.7 fl (7.4-10.4); NUCLEATED RED BLOOD CELLS% 0.3 /100WBC (0.0-0.0); PLATELET COUNT 209 10^3/UL (140-415); POSITIVE DIFF @See below; RED BLOOD COUNT 3.32 10^6/ul (4.70-6.10); RED CELL DISTRIBUTION WIDTH 25.7 % (11.5-14.5)
[2018-11-07 06:34] LABS: WHITE BLOOD COUNT 9.5 10^3/ul (4.8-10.8)
[2018-11-07 06:41] LABS: ADD MAN DIFF? YES
[2018-11-07 07:04] LABS: ANION GAP 6 (5-13)
[2018-11-07 07:11] LABS: BLOOD UREA NITROGEN 14 mg/dl (7-20); CALCIUM 8.1 mg/dl (8.4-10.2); CARBON DIOXIDE 22 mmol/L (21-31); CHLORIDE 108 mmol/L (97-110); CREATININE 0.77 mg/dl (0.61-1.24); GLUCOSE 146 mg/dl (70-220); POTASSIUM 4.1 mmol/L (3.5-5.1); SODIUM 136 mmol/L (135-144)
[2018-11-07 08:13] LABS: ANISOCYTOSIS 2+ (0-0); BAND NEUTROPHILS #M 0.5 10^3/ul (0.0-0.6); BAND NEUTROPHILS % (M) 6 % (0-4); BASOPHILS % (M) 1 % (0-2); ERYTHROBLAST% (NRBC) (M) 1 % (0-0); GIANT THROMBO% (M) 3 % (0-0); HYPOCHROMASIA 1+ (0-0); LYMPHOCYTES #M 2.7 10^3/ul (0.8-2.9); LYMPHOCYTES % (M) 29 % (15-51); METAMYELOCYTES %M 1 % (0-0); MICROCYTOSIS 1+ (0-0); MONOCYTE #M 0.1 10^3/ul (0.3-0.9); MONOCYTES % (M) 2 % (0-11); PLATELET ESTIMATE NORMAL; POLYCHROMASIA 1+ (0-0); REACTIVE LYMPHOCYTES #M 0.2 10^3/ul (0.0-0.0); REACTIVE LYMPHOCYTES% (M) 3 % (0-0); SEG NEUT #M 5.6 10^3/ul (1.6-7.5); SEGMENTED NEUTROPHILS (M) % 58 % (39-77); SMUDGE%M 7 % (0-0); TARGET CELLS 1+ (0-0)
[2018-11-07] MEDS: CEFEPIME 2GM/50 ML (PMX) 50 ML IVPB ×2 (08:14→21:00)
[2018-11-07] MEDS: MIDODRINE 5 MG TAB PO ×3 (08:14→17:22)
[2018-11-07] MEDS: LINAGLIPTIN 5 MG TABLET PO (08:14)
[2018-11-07] MEDS: INSULIN ASPART [NOVOLOG] 3 ML PEN SC ×4 (08:35→21:00)
[2018-11-07] MEDS: INSULIN GLARGINE [LANTus] (100 UNITS/ML) SYG SC (08:36)
[2018-11-07] MEDS: ENOXAPARIN 40 MG/0.4 ML SYG SC (08:36)
[2018-11-07] MEDS: CLOTRIMAZOLE 1% 30 GM CR TOP ×2 (08:36→21:00)
[2018-11-07] MEDS: LACTOBACILLUS RHAMNOSUS CAP PO ×2 (12:18→21:00)
[2018-11-07] MEDS: DIGOXIN 0.125 MG TAB PO (12:20)
[2018-11-07] MEDS: HEPARIN (100 UNITS/ML) 5 ML SYG CATHETER (22:12)
[2018-11-08] MEDS ORDERED: metFORMIN (XR) 500 MG TAB PO (08:55)
== END 2018-11-07 22:15 | disposition home or self-care (01) | DRG 871 ==
LOC: TEL 11-06 00:42 → E/R 16:18 → ICU 19:40
DX: A41.9 Sepsis, unspecified organism (principal); E11.10 Type 2 diabetes mellitus with ketoacidosis without coma; R65.21 Severe sepsis with septic shock; C16.9 Malignant neoplasm of stomach, unspecified; E87.1 Hypo-osmolality and hyponatremia; K52.1 Toxic gastroenteritis and colitis; D70.9 Neutropenia, unspecified; I95.9 Hypotension, unspecified; I48.2 Chronic atrial fibrillation; E11.65 Type 2 diabetes mellitus with hyperglycemia; E87.5 Hyperkalemia; N28.1 Cyst of kidney, acquired; E86.0 Dehydration; I10 Essential (primary) hypertension; E04.1 Nontoxic single thyroid nodule; R11.2 Nausea with vomiting, unspecified; T38.3X5A Adverse effect of insulin and oral hypoglycemic [antidiabetic] drugs, initial encounter; Y92.230 Patient room in hospital as the place of occurrence of the external cause; Z79.4 Long term (current) use of insulin; Z91.14 Patient's other noncompliance with medication regimen
CPT/HCPCS: 36415; 36600; 71045; 71250; 76536; 76775; 80048; 80053; 81001; 81003; 82270; 82533; 82550; 82553; 82728; 82803; 82962; 83036; 83540; 83605; 83735; 83880; 84100; 84443; 84484; 85025; 85610; 87040; 87075; 87081; 93005; 93306; 96374; 96375; 97110; 97116; 97161; 97530; 99291-25

== ENCOUNTER 2018-11-21 16:11 | Inpatient (IN) | payer OTHER ==
[2018-11-21 17:20] LABS: ABNORMAL IP MESSAGE 1; HEMATOCRIT 27.5 % (42.0-52.0); HEMOGLOBIN 8.7 g/dl (14.0-18.0); MEAN CORPUSCULAR HEMOGLOBIN 26.4 pg (29.0-33.0); MEAN CORPUSCULAR HGB CONC 31.6 g/dl (32.0-37.0); MEAN CORPUSCULAR VOLUME 83.6 fl (82.0-101.0); MEAN PLATELET VOLUME 9.5 fl (7.4-10.4); PLATELET COUNT 241 10^3/UL (140-415); POSITIVE DIFF @See below; RED BLOOD COUNT 3.29 10^6/ul (4.70-6.10)
[2018-11-21 17:23] LABS: ADD MAN DIFF? YES
[2018-11-21] MEDS ORDERED: INSULIN ASPART [NOVOLOG] 3 ML PEN SC (17:30)
[2018-11-21 17:38] LABS: ADD UMIC YES; UR ASCORBIC ACID NEGATIVE (NEGATIVE); UR BILIRUBIN (Dip) NEGATIVE (NEGATIVE); UR BLOOD (Dip) NEGATIVE (NEGATIVE); UR CLARITY CLEAR (CLEAR); UR COLOR STRAW (YELLOW); UR GLUCOSE (Dip) 3+ mg/dL (NEGATIVE); UR KETONES (Dip) NEGATIVE (NEGATIVE); UR LEUKOCYTE ESTERASE (Dip) NEGATIVE Leu/ul (NEGATIVE); UR NITRITE (Dip) NEGATIVE (NEGATIVE); UR RBC 1 /HPF (0-5); UR SPECIFIC GRAVITY (Dip) 1.016 (1.003-1.030); UR TOTAL PROTEIN (Dip) 1+ mg/dl (NEGATIVE); UR UROBILINOGEN (Dip) NEGATIVE (NEGATIVE); UR WBC 0 /HPF (0-5)
[2018-11-21 17:43] LABS: ALANINE AMINOTRANSFERASE 47 IU/L (13-69); ALBUMIN 3.4 g/dl (3.3-4.9); ALBUMIN/GLOBULIN RATIO 1.25; ALKALINE PHOSPHATASE 178 IU/L (42-121); ANION GAP 9 (5-13); ASPARTATE AMINO TRANSFERASE 32 IU/L (15-46); BILIRUBIN,INDIRECT 0.2 mg/dl (0-1.1); BILIRUBIN,TOTAL 0.2 mg/dl (0.2-1.3); BLOOD UREA NITROGEN 25 mg/dl (7-20); CALCIUM 8.7 mg/dl (8.4-10.2); CARBON DIOXIDE 23 mmol/L (21-31); CHLORIDE 100 mmol/L (97-110); CREATININE 0.64 mg/dl (0.61-1.24); GLUCOSE 330 mg/dl (70-220); POTASSIUM 4.5 mmol/L (3.5-5.1); SODIUM 132 mmol/L (135-144); TOTAL PROTEIN 6.1 g/dl (6.1-8.1)
[2018-11-21 17:50] LABS: B-TYPE NATRIURETIC PEPTIDE 2630 PG/ML (0-125)
[2018-11-21 18:04] LABS: ANISOCYTOSIS 2+ (0-0); BAND NEUTROPHILS % (M) 1 % (0-4); GIANT THROMBO% (M) 1 % (0-0); HYPOCHROMASIA 1+ (0-0); LYMPHOCYTES #M 0.4 10^3/ul (0.8-2.9); LYMPHOCYTES % (M) 7 % (15-51); MICROCYTOSIS 2+ (0-0); PLATELET ESTIMATE NORMAL; POLYCHROMASIA 1+ (0-0); SEG NEUT #M 6.4 10^3/ul (1.6-7.5); SEGMENTED NEUTROPHILS (M) % 92 % (39-77); SMUDGE%M 2 % (0-0)
[2018-11-21] MEDS ORDERED: ONDANSETRON 4 MG INJ IV (18:30)
[2018-11-21] MEDS ORDERED: ACETAMINOPHEN 325 MG TAB PO ×2 (18:30→20:30)
[2018-11-21] MEDS: INSULIN ASPART [NOVOLOG] 3 ML PEN SC ×2 (18:38→21:31)
[2018-11-21] MEDS: FUROSEMIDE 40 MG INJ IV (19:02)
[2018-11-21] MEDS ORDERED: morphine 2 MG INJ IV (20:30)
[2018-11-21] MEDS ORDERED: NACL 0.9% 3 ML SYG IV (20:30)
[2018-11-21] MEDS ORDERED: HYDROCODONE/APAP (5/325) TAB PO (20:30)
[2018-11-21] MEDS: DEXAMETHASONE 4 MG TAB PO (21:14)
[2018-11-21] MEDS: PANTOPRAZOLE (EC) 40 MG TAB PO (21:14)
[2018-11-21] MEDS: INSULIN GLARGINE [LANTus] (100 UNITS/ML) SYG SC (21:30)
[2018-11-22] MEDS: ACCU-CHEK XX (02:00)
[2018-11-22] MEDS: INSULIN ASPART [NOVOLOG] 3 ML PEN SC ×7 (02:20→21:58)
[2018-11-22 05:24] LABS: ADD MAN DIFF? NO
[2018-11-22 05:38] LABS: ABNORMAL IP MESSAGE 1; HEMATOCRIT 27.1 % (42.0-52.0); HEMOGLOBIN 8.7 g/dl (14.0-18.0); MEAN CORPUSCULAR HEMOGLOBIN 26.4 pg (29.0-33.0); MEAN CORPUSCULAR HGB CONC 32.1 g/dl (32.0-37.0); MEAN CORPUSCULAR VOLUME 82.1 fl (82.0-101.0); MEAN PLATELET VOLUME 9.9 fl (7.4-10.4); PLATELET COUNT 240 10^3/UL (140-415); POSITIVE DIFF @See below
[2018-11-22 05:38] LABS: WHITE BLOOD COUNT 7.4 10^3/ul (4.8-10.8)
[2018-11-22 05:54] LABS: ALANINE AMINOTRANSFERASE 38 IU/L (13-69); ALBUMIN 3.3 g/dl (3.3-4.9); ALBUMIN/GLOBULIN RATIO 1.22; ALKALINE PHOSPHATASE 145 IU/L (42-121); ANION GAP 9 (5-13); ASPARTATE AMINO TRANSFERASE 30 IU/L (15-46); BILIRUBIN,INDIRECT 0.2 mg/dl (0-1.1); BILIRUBIN,TOTAL 0.2 mg/dl (0.2-1.3); BLOOD UREA NITROGEN 25 mg/dl (7-20); CALCIUM 8.9 mg/dl (8.4-10.2); CARBON DIOXIDE 28 mmol/L (21-31); CHLORIDE 100 mmol/L (97-110); CREATININE 0.66 mg/dl (0.61-1.24); GLUCOSE 230 mg/dl (70-220); MAGNESIUM 1.9 mg/dl (1.7-2.5); SODIUM 137 mmol/L (135-144)
[2018-11-22] MEDS: PANTOPRAZOLE (EC) 40 MG TAB PO ×2 (08:46→21:40)
[2018-11-22] MEDS: DIGOXIN 0.125 MG TAB PO (09:22)
[2018-11-22 10:36] LABS: ADD UMIC NO; UR ASCORBIC ACID NEGATIVE (NEGATIVE); UR BILIRUBIN (Dip) NEGATIVE (NEGATIVE); UR BLOOD (Dip) NEGATIVE (NEGATIVE); UR CLARITY CLEAR (CLEAR); UR COLOR STRAW (YELLOW); UR GLUCOSE (Dip) 3+ mg/dL (NEGATIVE); UR KETONES (Dip) NEGATIVE (NEGATIVE); UR LEUKOCYTE ESTERASE (Dip) NEGATIVE Leu/ul (NEGATIVE); UR NITRITE (Dip) NEGATIVE (NEGATIVE); UR SPECIFIC GRAVITY (Dip) 1.009 (1.003-1.030); UR TOTAL PROTEIN (Dip) NEGATIVE (NEGATIVE); UR UROBILINOGEN (Dip) NEGATIVE (NEGATIVE)
[2018-11-22 10:57] LABS: CREATININE,URINE RANDOM 21.93 mg/dl (20-370)
[2018-11-22 10:57] LABS: SODIUM,URINE RANDOM 151 mmol/L (30-90)
[2018-11-22 11:07] LABS: ANISOCYTOSIS 2+ (0-0); BAND NEUTROPHILS % (M) 1 % (0-4); HYPOCHROMASIA 3+ (0-0); LYMPHOCYTES #M 0.4 10^3/ul (0.8-2.9); LYMPHOCYTES % (M) 6 % (15-51); MICROCYTOSIS 2+ (0-0); MONOCYTES % (M) 1 % (0-11); PLATELET ESTIMATE NORMAL; POIKILOCYTOSIS 1+ (0-0); POLYCHROMASIA 3+ (0-0); SEG NEUT #M 6.8 10^3/ul (1.6-7.5); SEGMENTED NEUTROPHILS (M) % 92 % (39-77); SMUDGE%M 4 % (0-0)
[2018-11-22] MEDS ORDERED: GLUCOSE GEL 15 GRAM TUBE PO ×2 (13:30)
[2018-11-22] MEDS ORDERED: GLUCAGON 1 MG INJ IM (13:30)
[2018-11-22] MEDS ORDERED: DEXTROSE 50% 50 ML SYRINGE IV (13:30)
[2018-11-22] MEDS ORDERED: INSULIN ASPART [NOVOLOG] 3 ML PEN SC ×2 (17:55)
[2018-11-22] MEDS: INSULIN GLARGINE [LANTus] (100 UNITS/ML) SYG SC (21:58)
[2018-11-23] MEDS: ACCU-CHEK XX ×2 (02:00→20:54)
[2018-11-23 06:02] LABS: ANION GAP 8 (5-13); BLOOD UREA NITROGEN 24 mg/dl (7-20); CALCIUM 9.1 mg/dl (8.4-10.2); CARBON DIOXIDE 30 mmol/L (21-31); CHLORIDE 98 mmol/L (97-110); CREATININE 0.71 mg/dl (0.61-1.24); GLUCOSE 141 mg/dl (70-220); PHOSPHORUS 3.4 mg/dl (2.5-4.9); POTASSIUM 4.1 mmol/L (3.5-5.1); SODIUM 136 mmol/L (135-144)
[2018-11-23] MEDS: INSULIN ASPART [NOVOLOG] 3 ML PEN SC ×7 (07:50→20:53)
[2018-11-23] MEDS: PANTOPRAZOLE (EC) 40 MG TAB PO ×2 (08:15→20:17)
[2018-11-23] MEDS: DIGOXIN 0.125 MG TAB PO (08:17)
[2018-11-23] MEDS: LISINOPRIL 5 MG TAB PO (09:00)
[2018-11-23] MEDS: ONDANSETRON 4 MG INJ IV (11:07)
[2018-11-23] MEDS: GLUCOSE GEL 15 GRAM TUBE BUCCAL (13:33)
[2018-11-23] MEDS: DEXTROSE 50% 50 ML SYRINGE IV (14:17)
[2018-11-23] MEDS: INSULIN GLARGINE [LANTus] (100 UNITS/ML) SYG SC (20:22)
[2018-11-24 07:07] LABS: PROTEIN, TOTAL 5.4 g/dL (6.1-8.1)
[2018-11-24] MEDS: INSULIN ASPART [NOVOLOG] 3 ML PEN SC ×7 (07:50→21:00)
[2018-11-24 08:27] LABS: ANION GAP 4 (5-13); BLOOD UREA NITROGEN 23 mg/dl (7-20); CALCIUM 8.5 mg/dl (8.4-10.2); CARBON DIOXIDE 31 mmol/L (21-31); CHLORIDE 100 mmol/L (97-110); CREATININE 0.63 mg/dl (0.61-1.24); GLUCOSE 64 mg/dl (70-220); POTASSIUM 3.6 mmol/L (3.5-5.1); SODIUM 135 mmol/L (135-144)
[2018-11-24] MEDS: PANTOPRAZOLE (EC) 40 MG TAB PO ×2 (08:28→20:30)
[2018-11-24] MEDS: DIGOXIN 0.125 MG TAB PO (08:28)
[2018-11-24] MEDS: LISINOPRIL 5 MG TAB PO (08:29)
[2018-11-24] MEDS: ONDANSETRON 4 MG INJ IV (12:40)
[2018-11-24] MEDS: INSULIN GLARGINE [LANTus] (100 UNITS/ML) SYG SC (20:35)
[2018-11-25] MEDS: ACCU-CHEK XX (02:00)
[2018-11-25] MEDS: INSULIN ASPART [NOVOLOG] 3 ML PEN SC ×4 (07:50→12:32)
[2018-11-25] MEDS: DIGOXIN 0.125 MG TAB PO (08:57)
[2018-11-25] MEDS: PANTOPRAZOLE (EC) 40 MG TAB PO (08:57)
[2018-11-25] MEDS: LISINOPRIL 5 MG TAB PO (09:00)
[2018-11-25 13:12] LABS: CREATININE, RANDOM URINE 23 mg/dL (20-320); MICROALBUMIN 12.4 mg/dL; MICROALBUMIN/CREATININE RATIO 539 (<30)
[2018-11-25] MEDS: HEPARIN (100 UNITS/ML) 5 ML SYG CATHETER (14:03)
[2018-11-25 15:31] LABS: CREATININE, RANDOM URINE 33 mg/dL (20-320); PROTEIN/CREATININE RATIO 545 mg/g creat (22-128)
[2018-11-26 23:53] LABS: ALBUMIN 3.2 g/dL (3.8-4.8); ALPHA-1-GLOBULINS 0.3 g/dL (0.2-0.3); ALPHA-2-GLOBULINS 0.8 g/dL (0.5-0.9); BETA 2 GLOBULINS 0.3 g/dL (0.2-0.5); BETA GLOBULINS 0.4 g/dL (0.4-0.6); GAMMA GLOBULINS 0.5 g/dL (0.8-1.7)
== END 2018-11-25 14:45 | disposition home or self-care (01) | DRG 699 ==
LOC: MS1 22:15 → E/R 16:11 → MS1 18:28
PROVIDERS: Internal Medicine
DX: E11.21 Type 2 diabetes mellitus with diabetic nephropathy (principal); E87.1 Hypo-osmolality and hyponatremia; C16.9 Malignant neoplasm of stomach, unspecified; R80.9 Proteinuria, unspecified; I48.91 Unspecified atrial fibrillation; E78.5 Hyperlipidemia, unspecified; E04.1 Nontoxic single thyroid nodule; D64.9 Anemia, unspecified; Z79.01 Long term (current) use of anticoagulants
CPT/HCPCS: 36415; 71045; 76775; 80048; 80053; 81001; 81003; 82043; 82570; 82962; 83735; 83880; 84100; 84155; 84156; 84165; 84166; 84300; 85025; 86320; 86325; 93005; 93970; 99285-25